=== PATIENT | female | born 1970 | race Caucasian/White ===

== ENCOUNTER 2023-03-07 01:44 | Day surgery (SDC) | payer OTHER, SELFPAY ==
[2023-02-25 14:40] VITALS: BMI 26.6
[2023-03-07 08:57] VITALS: BP 116/70; PULSE 72; RESP 18; TEMP 36.3; O2SAT 98
[2023-03-07] MEDS: LACTATED RINGERS 1,000 ML 150 ML IV CONT (09:07)
--- NOTE | 2023-03-07 09:47 | P.HP_ITS ---
History of Present Illness History of Present Illness Consent: Risks, benefits, and alternatives have been discussed and questions answered. Patient agrees to proceed with procedure. Chief complaint: family hx colon ca Narrative: Rita De Luna is a 52 year old female Presents for screening colonoscopy. Patient's current weight appetite and bowel movements are normal. Patient denies abdominal pain. She has had no bleeding. Family history is significant that her mother had colon polyps her grandfather had Colon cancer. Review of Systems Review of Systems: Review of systems noncontributory. FOR[facility], [facility] Social History Social History Smoking status: Never smoker Alcohol intake: current Drinks per week: 5 Alcohol use details: DRINKS/WINE Substance use: never Substance use type: does not use Living arrangements: with family Spiritual care concerns: No Meds Home Medications and Allergies Home Medications Medication Instructions Recorded Confirmed Type No Home Medications 03/07/23 03/07/23 History Allergies Allergy/AdvReac Type Severity Reaction Status Date / Time No Known Allergies Allergy Mild Unverified 03/07/23 08:54 Vital Signs Vital Signs - 24 hr 03/07/23 08:57 Temperature 97.3 F L Pulse Rate 72 Respiratory Rate 18 Blood Pressure 116/70 Pulse Oximetry 98 Oxygen Delivery Room Air Exam Narrative: Physical exam reveals patient to be alert. Vital signs stable. HEENT exam is unremarkable. Patient is anicteric. Lungs are clear to auscultation and percussion. Heart is without murmur or extra sounds. Abdomen bowel sounds are present soft nontender with no organomegaly. Digital external rectal exam is normal. Assessment and Plan Assessment and plan (1) Family history of colonic polyps: Code(s): Z83.71 - Family history of colonic polyps Status: Acute Assessment and Plan: Patient has a family history of colon polyps in her mother and colon cancer in her grandfather. Plan for surveillance colonoscopy now and at 5 year intervals.
--- NOTE | 2023-03-07 10:19 | WPDANESEPPF ---
Anes - Initial Pre Proc Eval Procedure: Operation Date: 03/07/23 10:00 Proposed Procedures p Colonoscopy - Shaun Bridges MD Date/Time: 03/07/23 10:19 Surgeon: Shaun Bridges MD Pre Op Diagnosis: family hx colon ca Patient Data Age: 52 Gender: F Height: 1.73 m Weight: 80.8 kg Last Vital Signs Temp 97.3 F L 03/07/23 08:57 Pulse 72 03/07/23 08:57 Resp 18 03/07/23 08:57 BP 116/70 03/07/23 08:57 Pulse Ox 98 03/07/23 08:57 O2 Del Method Room Air 03/07/23 08:57 Allergies Allergy/AdvReac Type Severity Reaction Status Date / Time No Known Allergies Allergy Mild Unverified 03/07/23 08:54 Home Medications Medication Instructions Recorded Confirmed Type No Home Medications 03/07/23 03/07/23 History Patient hx anesthesia problems: none Family hx anesthesia problems: none Results Review: All pre-operative results and documents have been reviewed as part of the pre-operative evaluation. FOR[facility]LY [facility], [facility] Social History Social History Smoking status: Never smoker Alcohol intake: current Drinks per week: 5 Alcohol use details: DRINKS/WINE Substance use: never Substance use type: does not use Living arrangements: with family Spiritual care concerns: No Anes - Eval Final PreProcedure Day of Procedure 03/07/23 10:19 Patient weight: overweight Heart: regular rate and rhythm Lungs: clear to auscultation Airway: Mallampati scale class II Neurological: alert and oriented Last oral intake: >/= 8 hours ASA classification: II Emergent: no Anesthetic plan: proceed Anesthesia type and monitoring: general GIVS and standard monitoring Results Review: All pre-operative results and documents have been reviewed as part of the pre-operative evaluation. Informed Consent: The patient's anesthetic plan and its attendant risks and benefits were discussed with the patient/family/POA. Questions were solicited and answers provided to the satisfaction of the patient/family/POA.
[2023-03-07 10:54] VITALS: BP 95/59; PULSE 68; RESP 22; O2SAT 97
[2023-03-07 11:04] VITALS: BP 102/65; PULSE 67; RESP 19; O2SAT 100
[2023-03-07 11:14] VITALS: BP 113/78; PULSE 60; RESP 18; O2SAT 99
== END 2023-03-07 11:23 | disposition home or self-care (01) ==
PROVIDERS: PCP Nurse Practitioner Family; Visit Provider Internal Medicine Gastroenterology
PROC: 0DJD8ZZ Inspection of Lower Intestinal Tract, Via Natural or Artificial Opening Endoscopic (ICD-10-PCS; CPT 45378; principal; 2023-03-07 10:00)
DX: Z12.11 Encounter for screening for malignant neoplasm of colon (principal); D12.0 Benign neoplasm of cecum; K64.8 Other hemorrhoids; Z80.0 Family history of malignant neoplasm of digestive organs; Z83.71 Family history of colonic polyps
CPT/HCPCS: 45385; 88305; J2704; J7120